=== PATIENT | male | born 1980 | race African-American/Black ===

== ENCOUNTER 2017-08-31 17:34 | Emergency (ER) | payer OTHER ==
[~2017-08-31] VITALS: Ht 182.9 cm; Wt 78.4 kg
[2017-08-31 22:06] VITALS: BP 110/85
== END 2017-08-31 22:06 | disposition short-term general hospital (02) ==
LOC: EME 17:34 → EDBD 17:34 → EME 22:06
PROC: 3E0T3BZ Introduction of Anesthetic Agent into Peripheral Nerves and Plexi, Percutaneous Approach (ICD-10-PCS; principal; 2017-08-31)
DX: S62.634B Displaced fracture of distal phalanx of right ring finger, initial encounter for open fracture (principal); W23.0XXA Caught, crushed, jammed, or pinched between moving objects, initial encounter; Y99.0 Civilian activity done for income or pay
CPT/HCPCS: 73140; 99281; 99285; J0690; S0020